=== PATIENT | male | born 1965 | race Caucasian/White ===

== ENCOUNTER 2017-03-05 21:39 | Emergency (ER) | payer SELFPAY ==
[~2017-03-05] VITALS: Ht 188 cm; Wt 112.6 kg
[2017-03-05 21:49] VITALS: BP 144/95
[2017-03-05] MEDS ORDERED: MELOXICAM15 MG PO (21:54)
[2017-03-05] MEDS ORDERED: HYDROCHLOROT25 MG PO (21:55)
== END 2017-03-05 23:34 | disposition left against medical advice (07) | DRG 951 ==
LOC: ED 21:39 → LWOBS 23:34 → ED 23:34
DX: Z91.19 Patient's noncompliance with other medical treatment and regimen (principal)